=== PATIENT | male | born 1960 | race African-American/Black ===

== ENCOUNTER → 2019-05-20 | Outpatient (CLI) | payer OTHER ==
--- NOTE | 2019-05-21 11:19 | EKG REPORT ---
SEVERITY:- BORDERLINE ECG - SINUS RHYTHM BORDERLINE ST ELEVATION, ANTERIOR LEADS : Confirmed by: Helena Fields 21-May-2019 11:18:29
== END ==
LOC: OD 10:13
PROVIDERS: ATTEND Family Medicine
DX: I49.3 Ventricular premature depolarization (principal)
CPT/HCPCS: 93005; 93010